=== PATIENT | male | born 1985 | race Caucasian/White ===

== ENCOUNTER 2016-07-01 17:43 | Emergency (ER) | payer OTHER ==
[~2016-07-01] VITALS: Ht 180.3 cm; Wt 67.2 kg
[~2016-07-01 17:43] MED LIST: ATARAX,VISTARIL50 MG PO; AUGMENTIN875 MG PO; CELEXA20 MG PO; FLOMAX0.4 MG PO; HYDROXYZINE PAM25 MG PO; NAPROSYN500 MG PO; NAPROXEN500 MG PO; NEURONTIN600 MG PO; PEN-VEE K,VEET500 MG PO; PERCOCET 5/31 TABLET PO; PREDNISONE10 M1 PO; SEROQUEL400 MG PO; TRAMADOL HCL50 MG PO; VENTOLIN HFA18 GM IH
[2016-07-01 19:38] VITALS: BP 134/80
== END 2016-07-01 19:39 | disposition home or self-care (01) ==
LOC: EME 17:43
DX: S93.401A Sprain of unspecified ligament of right ankle, initial encounter (principal); X50.1XXA Overexertion from prolonged static or awkward postures, initial encounter; W17.89XA Other fall from one level to another, initial encounter
CPT/HCPCS: 73610; 99281; 99283

== ENCOUNTER 2017-01-30 21:23 | Emergency (ER) | payer OTHER ==
[~2017-01-30] VITALS: Ht 180.3 cm; Wt 69.8 kg
[2017-01-30 22:15] VITALS: BP 146/89
== END 2017-01-30 22:16 | disposition home or self-care (01) ==
LOC: EME 21:23
DX: S61.211A Laceration without foreign body of left index finger without damage to nail, initial encounter (principal); S61.213A Laceration without foreign body of left middle finger without damage to nail, initial encounter; W26.0XXA Contact with knife, initial encounter; J45.909 Unspecified asthma, uncomplicated; Z87.891 Personal history of nicotine dependence
CPT/HCPCS: 99281; 99284